=== PATIENT | female | born 1985 | race Two or more races ===

== ENCOUNTER 2018-03-08 22:31 | Emergency (ER) | payer MEDICAID, OTHER ==
[~2018-03-08] VITALS: Ht 154.9 cm; Wt 68.0 kg
[2018-03-08 22:55] VITALS: BP 111/72
== END 2018-03-09 01:35 | disposition left against medical advice (07) ==
LOC: EDBD 22:31 → ER 22:41
DX: J45.909 Unspecified asthma, uncomplicated (principal); Z53.21 Procedure and treatment not carried out due to patient leaving prior to being seen by health care provider